=== PATIENT | male | born 1960 | race Caucasian/White ===

== ENCOUNTER 2018-02-28 17:43 | Emergency (ER) | payer SELFPAY ==
[~2018-02-28] VITALS: Ht 162.6 cm; Wt 80.7 kg
[2018-02-28 18:05] VITALS: BP 153/79
--- NOTE | 2018-02-28 18:11 | NUR ---
PT TAKEN TO THE LOBBY AT THIS TIME TO WAIT FOR NEXT AVAILABLE BED W/ VSS
--- NOTE | 2018-02-28 19:10 | NUR ---
PT AMBULATES TO BED 6
--- NOTE | 2018-02-28 19:15 | NUR ---
PT PRESENTED ER WITH C/O PAIN TO THE RIGHT FINGERS, PINKY AND RING FINGER X 1 DAY. PTR STATED HE SMASHED THEM IN A METAL CHAIR. PT LOST MOST OF HIS FINGER NAILS. PT HAS SOME SWELLING TO THE SIGHT. PT HAS MEDICAL HX OF DM. KNA.DENIES N/V/D; SKIN IS PINK/WARM/DRY; AAOX4 WITH EVEN AND STEADY GAIT; HR EVEN AND REGULAR; PATIENT STATES PAIN OF 5/10 AT THIS TIME; VSS; PATIENT POSITIONED FOR COMFORT; HOB ELEVATED; BEDRAILS UP X2; BED DOWN. ER MD MADE AWARE OF PT STATUS.
[2018-02-28] MEDS ORDERED: LIDOCAINE 1% 500 MG/50 ML VIAL INJ SCH (20:20)
--- NOTE | 2018-02-28 21:44 | NUR ---
MD WITH PT AT BEDSIDE, PROCEDURE. PT TOLERATED WELL
[2018-02-28 22:24] VITALS: BP 145/75
--- NOTE | 2018-02-28 22:25 | NUR ---
Patient discharged with v/s stable. Written and verbal after care instructions given and explained. Patient alert, oriented and verbalized understanding of instructions. Ambulatory with steady gait. All questions addressed prior to discharge. ID band removed. Patient advised to follow up with PMD. Rx of MOTRIN, BACTRIM given. Patient educated on indication of medication including possible reaction and side effects. Opportunity to ask questions provided and answered.
== END 2018-02-28 22:24 | disposition home or self-care (01) ==
LOC: MED 17:43
DX: L60.0 Ingrowing nail (principal); E11.9 Type 2 diabetes mellitus without complications
CPT/HCPCS: 11730; 11732; 73130; 90471; 90715; 99284; J2001